=== PATIENT | female | born 1980 | race Caucasian/White ===

== ENCOUNTER 2024-09-01 17:45 | Emergency (ER) | payer OTHER, SELFPAY ==
[2024-09-01 17:47] VITALS: BP 160/92; PULSE 82; TEMP 37.2; O2SAT 100; BMI 21.0
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
[2024-09-01] MEDS: IBUPROFEN 400 MG TABLET 800 MG PO (18:50)
== END 2024-09-01 19:12 | disposition home or self-care (01) ==
PROVIDERS: Emergency Provider Emergency Medicine
DX: S63.591A Other specified sprain of right wrist, initial encounter (principal); M25.531 Pain in right wrist; S60.811A Abrasion of right wrist, initial encounter; V89.2XXA Person injured in unspecified motor-vehicle accident, traffic, initial encounter
CPT/HCPCS: 73110; 99284; J1885